=== PATIENT | female | born 1995 | race Caucasian/White ===

== ENCOUNTER 2016-04-25 21:49 | Emergency (ER) | payer MEDICAID ==
[2016-04-25 22:01] VITALS: RESP 16; TEMP 98.6
[2016-04-25] MEDS ORDERED: SKIN ADHESIVE (DERMABOND) 1 EACH TP ONE (23:01)
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
[2016-04-25 23:26] VITALS: BP 132/84; PULSE 93; O2SAT 96
== END 2016-04-25 23:26 | disposition home or self-care (01) ==
LOC: EDUNIT# → EEVIPCON 21:49
PROC: 0HQ1XZZ Repair Face Skin, External Approach (ICD-10-PCS; principal; 2016-04-25)
DX: S01.21XA Laceration without foreign body of nose, initial encounter (principal); T74.11XA Adult physical abuse, confirmed, initial encounter; Y04.8XXA Assault by other bodily force, initial encounter; Y92.009 Unspecified place in unspecified non-institutional (private) residence as the place of occurrence of the external cause